=== PATIENT | female | born 2000 | race Hispanic/Latino ===

== ENCOUNTER 2023-11-06 13:11 | Emergency (ER) | payer OTHER ==
[~2023-11-06] VITALS: Ht 134.6 cm; Wt 63.4 kg
[2023-11-06 13:13] VITALS: BP 129/81; TEMP 97.9; O2SAT 96
== END 2023-11-06 16:05 | disposition home or self-care (01) ==
LOC: M ED 13:11
DX: J06.9 Acute upper respiratory infection, unspecified (principal); Z11.52 Encounter for screening for COVID-19

== ENCOUNTER 2024-02-16 08:17 | Emergency (ER) | payer OTHER ==
[~2024-02-16] VITALS: Ht 134.6 cm; Wt 62.4 kg
[2024-02-16 11:00] VITALS: BP 115/58; TEMP 99.6; O2SAT 97
[2024-02-16] MEDS: CETIRIZINE (ZyrTEC) 10 MG TAB PO ONE (11:27)
[2024-02-16 12:32] LABS: RSV AMPLIFICATION NEGATIVE (NEGATIVE)
[2024-02-16] MEDS ORDERED: CETI10CH PO (12:59)
== END 2024-02-16 13:14 | disposition home or self-care (01) ==
LOC: M ED 08:17
DX: U07.1 COVID-19 (principal)

== ENCOUNTER → 2024-07-26 | Outpatient (CLI) | payer OTHER ==
[~2024-07-26] MED LIST: CETI10CH PO
== END ==
LOC: M RAD 14:00
PROVIDERS: ATTEND Student in an Organized Health Care Education/Training Program
DX: M48.00 Spinal stenosis, site unspecified (principal)

== ENCOUNTER → 2024-10-08 | Outpatient (REF) | payer OTHER ==
[2024-10-08 13:07] LABS: HEMATOCRIT 44.2 % (36.0-47.0); HEMOGLOBIN 14.1 g/dl (12.0-15.5); MEAN CORPUSCULAR HEMOGLOBIN 29.3 pg (27.0-33.0); MEAN CORPUSCULAR HGB CONC 31.9 g/dl (32.0-36.5); MEAN CORPUSCULAR VOLUME 91.9 fl (80.0-96.0); PLATELET COUNT, AUTOMATED 286 10^3/uL (150-450); RED BLOOD COUNT 4.81 10^6/uL (4.00-5.40); WHITE BLOOD COUNT 6.4 10^3/uL (4.0-10.0)
[2024-10-08 13:30] LABS: HEMOGLOBIN A1c 4.9 % (4.0-6.0)
[2024-10-08 13:42] LABS: THYROID STIMULATING HORMONE 1.993 uIU/ML (0.55-4.78)
[2024-10-08 13:45] LABS: ALBUMIN 3.4 G/DL (3.2-5.2); ALKALINE PHOSPHATASE 78 U/L (35-104); ALT/SGPT < 9 U/L (7.0-40); AST/SGOT 10 U/L (<34); BILIRUBIN,TOTAL 0.4 MG/DL (0.3-1.2); BLOOD UREA NITROGEN 16 MG/DL (9-23); CALCIUM LEVEL 8.5 MG/DL (8.5-10.1); CARBON DIOXIDE LEVEL 26 MMOL/L (20-31); CHLORIDE LEVEL 106 MMOL/L (98-107); CHOLESTEROL LEVEL 131 MG/DL (<200); CHOLESTEROL RISK RATIO 2.67 (<5); CREATININE FOR GFR 0.55 MG/DL (0.55-1.30); GLOMERULAR FILTRATION RATE > 90.0 (>60); GLUCOSE, FASTING 92 MG/DL (60-100); LDL CHOLESTEROL 74.2 MG/DL (<100); POTASSIUM SERUM 4.5 MMOL/L (3.5-5.1); SODIUM LEVEL 138 MMOL/L (136-145); TOTAL PROTEIN 6.8 G/DL (5.7-8.2); TRIGLYCERIDES LEVEL 39 MG/DL (<150)
== END ==
LOC: M LAB REF 12:13
PROVIDERS: ATTEND Student in an Organized Health Care Education/Training Program
DX: Z00.01 Encounter for general adult medical examination with abnormal findings (principal)

== ENCOUNTER → 2024-10-24 | Outpatient (REF) | payer OTHER ==
[2024-10-24 15:54] LABS: HIV 1&2 SCREEN NEGATIVE (NEGATIVE)
[2024-10-24 16:02] LABS: HEPATITIS C VIRUS ABY INDEX 0.05 INDEX (<0.8)
[2024-10-26 14:22] LABS: HPV APTIMA Not Detected (Not Detected)
== END ==
LOC: M LAB REF 12:09
PROVIDERS: ATTEND Student in an Organized Health Care Education/Training Program
DX: Z01.411 Encounter for gynecological examination (general) (routine) with abnormal findings (principal); N89.8 Other specified noninflammatory disorders of vagina; Z12.4 Encounter for screening for malignant neoplasm of cervix